=== PATIENT | female | born 1990 | race Caucasian/White ===

== ENCOUNTER 2017-03-31 09:50 | Emergency (ER) | payer OTHER ==
[~2017-03-31] VITALS: Ht 182.9 cm; Wt 136.5 kg
[2017-03-31] MEDS ORDERED: METFORMIN HCL500 MG PO (10:10)
[2017-03-31] MEDS ORDERED: EFFEXOR XR75 MG PO (10:11)
== END 2017-03-31 11:24 | disposition home or self-care (01) ==
LOC: ED 09:50
DX: O46.92 Antepartum hemorrhage, unspecified, second trimester (principal); O34.82 Maternal care for other abnormalities of pelvic organs, second trimester; O99.342 Other mental disorders complicating pregnancy, second trimester; Z3A.22 22 weeks gestation of pregnancy; Z79.84 Long term (current) use of oral hypoglycemic drugs
CPT/HCPCS: 76801; 76817; 80053; 81001; 84702; 85025; 86900; 86901; 99284

== ENCOUNTER 2022-03-11 19:37 | Emergency (ER) | payer OTHER ==
[~2022-03-11] VITALS: Ht 182.9 cm; Wt 136.5 kg
[~2022-03-11 19:37] MED LIST: EFFEXOR XR75 MG PO; METFORMIN HCL500 MG PO
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
[2022-03-11] MEDS ORDERED: FLUOXETINE HCL20 MG PO (19:51)
[2022-03-11] MEDS ORDERED: PROMETHAZINE HC25 M1 PO (19:51)
[2022-03-11] MEDS ORDERED: CYCLOBENZAPRINE10 MG PO (19:51)
[2022-03-11] MEDS ORDERED: TYLENOL325 MG PO (19:52)
[2022-03-11] MEDS ORDERED: IBU400 MG PO (19:52)
[2022-03-11] MEDS ORDERED: ULTRAM50 MG PO (21:08)
== END 2022-03-11 21:50 | disposition home or self-care (01) ==
LOC: ED 19:37
DX: S46.911A Strain of unspecified muscle, fascia and tendon at shoulder and upper arm level, right arm, initial encounter (principal); F32.A Depression, unspecified; Z79.899 Other long term (current) drug therapy; Z79.84 Long term (current) use of oral hypoglycemic drugs; V43.62XA Car passenger injured in collision with other type car in traffic accident, initial encounter
CPT/HCPCS: 99283; A9270

== ENCOUNTER 2024-03-06 17:53 | Emergency (ER) | payer OTHER ==
[~2024-03-06] VITALS: Ht 182.9 cm; Wt 154.8 kg
[~2024-03-06 17:53] MED LIST changes: +CYCLOBENZAPRINE10 MG PO; +FLUOXETINE HCL20 MG PO; +IBU400 MG PO; +IRON18 MG PO; +MELATONINMAX10 MG PO; +MELOXICAM10 MG PO; +PROMETHAZINE HC25 M1 PO; +TYLENOL325 MG PO; +ULTRAM50 MG PO; +VITAMIN C 500500 M1 PO
[2024-03-06 18:11] LABS: BASOPHILS 0.2 % (0-2); EOSINOPHILS 0.1 % (0-6); HEMATOCRIT 35.8 % (35.0-50.0); HEMOGLOBIN 11.7 g/dL (12.0-18.0); LYMPHOCYTES 4.9 % (24-44); MCH 24.5 (27-36); MCHC 32.6 g/dl (30-36); MCV 75.3 fl (81-99); MONOCYTES 4.3 % (0-12); NEUTROPHILS 90.5 % (39-80); PLATELET COUNT 376 K/uL (140-440); RBC 4.76 M/ul (4.3-5.7); RDW 17.6 (10.5-15.0)
[2024-03-06] MEDS ORDERED: SODIUM CHLORIDE 0.9% 1,000 ML IV ONE (18:15)
[2024-03-06 18:26] LABS: ALBUMIN 3.3 g/dL (3.4-5.0); ALBUMIN/GLOBULIN RATIO 0.66 (1.1-2.4); ANION GAP 16.7 (7-21); BILIRUBIN, TOTAL 0.6 ng/dL (0.2-1.0); BUN/CREATININE RATIO 5.49 (6.0-28.6); CALCIUM 8.9 mg/dL (8.5-10.1); CREATININE, SERUM 0.91 mg/dL (0.55-1.02); POTASSIUM 3.7 mmol/L (3.5-5.1); PROTEIN, TOTAL 8.3 g/dL (6.4-8.2)
[2024-03-06] MEDS ORDERED: ACETAMINOPHEN 500 MG TAB PO ONE (18:30)
[2024-03-06 18:42] LABS: LACTIC ACID, BLOOD 1.4 mmol/L (0.4-2.0)
[2024-03-06] MEDS ORDERED: AMP/SULBACTAM SOD 3 GM VIAL IV ONE (19:11)
[2024-03-06] MEDS ORDERED: AMP/SULBACTAM SOD 3 GM in SODIUM CHLORIDE 0.9% 100 ML IV ONE (19:15)
[2024-03-06] MEDS ORDERED: VANCOMYCIN HCL/D5W 1 GM/270 ML PIGGYBACK KIT IV ONE (20:00)
[2024-03-06] MEDS ORDERED: KETOROLAC TROMETHAMINE 30 MG/ML VIAL IV ONE (21:45)
[2024-03-06] MEDS ORDERED: LACTATED RINGER'S 1,000 ML IV SCH (21:45)
[2024-03-06 23:22] VITALS: BP 149/92
== END 2024-03-06 22:35 | disposition short-term general hospital (02) ==
LOC: ED 17:53
PROVIDERS: Emergency Medicine
DX: K12.2 Cellulitis and abscess of mouth (principal); F32.A Depression, unspecified; Z91.018 Allergy to other foods; Z91.048 Other nonmedicinal substance allergy status
CPT/HCPCS: 36415; 70491; 80053; 83605; 85025; A9270; J0295; J1885; J3370; J7030; J7121; Q9967

== ENCOUNTER 2025-05-07 05:35 | Day surgery (SDC) | payer OTHER ==
[~2025-05-07] VITALS: Ht 182.9 cm; Wt 157.0 kg
[~2025-05-07 05:35] MED LIST changes: +LACTATED RINGER'S 1,000 ML IV SCH
[2025-05-07] MEDS ORDERED: LIDOCAINE HCL 0.5% 50 ML SDV ONE (06:00)
[2025-05-07 06:06] VITALS: BP 147/104
[2025-05-07 06:20] VITALS: BP 142/77
[2025-05-07] MEDS ORDERED: MIDAZOLAM HCL 2 MG/2 ML VIAL ONE (06:52)
[2025-05-07] MEDS ORDERED: IBLOOD GLUCOSE TEST STRIP 1 EA TEST VI PRN (07:00)
[2025-05-07] MEDS ORDERED: CEFAZOLIN SODIUM 3 GM/30 ML SYR IV SCH (07:00)
[2025-05-07] MEDS ORDERED: LIDOCAINE HCL 1% 5 ML SDV INJ ONE (07:00)
[2025-05-07] MEDS ORDERED: fentaNYL citrate 100 MCG/2 ML VIAL ONE (07:12)
[2025-05-07] MEDS ORDERED: TRAMADOL HCL50 MG PO (07:27)
[2025-05-07] MEDS ORDERED: TRAMADOL HCL 50 MG TAB PO PRN (07:30)
--- NOTE | 2025-05-07 07:44 | NUR ---
05/07/25 0744 Annmarie Elias 0726 PT ARRIVED TO PACU WITH 6L VIA MASK, PT ASLEEP AND RESP EVEN AND UNLABORED. 0732 PT WAKES AND O2 REMOVED. PT REPORTS PAIN IN HAND 03/11, PT REPORTS NUMBNESS IN FINGERS 3-5. 0741 PT SITTING UP AND SIPPING WATER AND EATING APPLESAUCE. PAIN MEDICATION GIVEN. PT TALKING TO RN.
[2025-05-07 07:57] VITALS: BP 129/82
--- NOTE | 2025-05-07 07:58 | NUR ---
PT NOT AVAILABLE FOR VISIT. PROVIDED PRAYER.
--- NOTE | 2025-05-10 17:12 | OR ---
[facility] [address] [place], [place] [address] Signed DATE OF OPERATION: 05/07/2025 SURGEON: Jaden Carrera MD PREOPERATIVE DIAGNOSIS: Carpal tunnel syndrome, left. POSTOPERATIVE DIAGNOSIS: Carpal tunnel syndrome, left. PROCEDURE: Carpal tunnel release, left. LAMINATION OPERATOR: None. ANESTHESIA: Ananya block. TOURNIQUET TIME: 15 minutes. BRIEF HISTORY: Jada is a 34-year-old female with progressive worsening of pain and numbness in her hand. Nerve conduction studies were consistent with significant carpal tunnel. The risks and benefits of operative treatment were discussed with her and she elected to proceed. DESCRIPTION OF PROCEDURE: Once consent was obtained, she was taken to the operating room. After adequate anesthesia, she was left on the day surgery bed with a hand table. The arm was prepped and draped in a standard sterile fashion. A 1.5 cm incision was made in the distal wrist crease, carried through skin and subcutaneous tissue. The palmaris longus was identified, retracted, and protected. The transverse carpal ligament was identified under loupe magnification. It was then dissected free of overlying soft tissue proximally and distally. It was released proximally a cm and distally to the distal extent again under direct loupe magnification. This was palpated using a [place] and found to be completely released. The wound was copiously irrigated with normal saline, closed with 3-0 nylon and injected with 7 mL of 0.25% plain Marcaine. The wound was then Electronically Signed By: JADEN CARRERA MD 05/07/25 0919 Electronically Signed By: JADEN CARRERA MD 05/12/25 0754 PATIENT NAME: JADA CEVALLOS OPERATIVE REPORT DATE OF : 86 REPORT #: [id number] PHYSICIAN: JADEN CARRERA MD PCP: BECKI SALCEDO MD REPORT IS CONFIDENTIAL AND NOT TO BE RELEASED WITHOUT AUTHORIZATION [facility] [address] [facility] [place], [place] [address] Signed dressed with bacitracin, Adaptic, 4 x 8s, and gauze. She tolerated the procedure well. All sponge, needle, and instrument counts were correct. Jaden Carrera MD BA/MODL /[id number] Copies: ~ Electronically Signed By: JADEN CARRERA MD 05/07/25 0919 Electronically Signed By: JADEN CARRERA MD 05/12/25 0754 PATIENT NAME: JADA CEVALLOS OPERATIVE REPORT DATE OF : 86 REPORT #: [id number] PHYSICIAN: JADEN CARRERA MD PCP: BECKI SALCEDO MD REPORT IS CONFIDENTIAL AND NOT TO BE RELEASED WITHOUT AUTHORIZATION
== END 2025-05-07 08:06 | disposition home or self-care (01) ==
LOC: DS 05:35
PROVIDERS: ATTEND Specialist
PROC: 01N50ZZ Release Median Nerve, Open Approach (ICD-10-PCS; principal; 2025-05-07 07:00)
DX: G56.02 Carpal tunnel syndrome, left upper limb (principal); K21.9 Gastro-esophageal reflux disease without esophagitis; F84.0 Autistic disorder; Z88.0 Allergy status to penicillin; Z88.5 Allergy status to narcotic agent; Z91.018 Allergy to other foods; Z91.09 Other allergy status, other than to drugs and biological substances
CPT/HCPCS: 01810; 84703; J0690; J2250; J3010; J7121